=== PATIENT | female | born 1940 | race African-American/Black ===

== ENCOUNTER 2020-06-06 11:45 | Emergency (ER) | payer MEDICARE ==
[~2020-06-06 11:45] MED LIST: FLONASE ALLER15.8 ML; GLUCOSAMINE &1 EAC1 PO; KLOR-CON M 1010 MEQ PO; LEXAPRO20 MG PO; MUCUS RELIEF400 MG PO; NEURONTIN300 MG PO; NORCO 5-325 TA1 EACH PO; PHOSLO667 MG PO; PREVACID30 M1 PO; PREVALITE4 GM PO; SYMBICORT 80-10.2 GM INH; VITAMIN B-121000 MC1 PO; VITAMIN D3 PO
[2020-06-06 12:10] LABS: BASOPHIL 0.4 % (0-2); HCT 41.5 % (37.0-47.0); HGB 13.3 g/dl (12.5-16.0); LYMPHOCYTE 21.1 % (15-48); MCH 30.2 pg (25.0-31.0); MCV 94.3 fL (78.0-100.0); MONOCYTE 8.2 % (0-12); MPV 9.6 fL (6.0-9.5); NEUTROPHIL 68.6 % (41-80); NRBC 0; PLT 339 K/uL (150-400)
[2020-06-06 12:22] LABS: INR 1.03 (0.9-1.2); PROTHROMBIN TIME 12.8 SECONDS (11.4-13.6)
[2020-06-06 12:23] LABS: PTT 29.7 SECONDS (22.2-34.7)
[2020-06-06 12:26] LABS: ALBUMIN 3.5 g/dL (3.4-5.0); BILIRUBIN - TOTAL 0.3 mg/dL (0.2-1.0); BUN/CREAT RATIO (CALC) 14.3 RATIO; CREATININE 0.7 mg/dL (0.51-0.95); GLOBULIN (CALCULATION) 4.2 g/dL; TOTAL PROTEIN 7.7 g/dL (6.4-8.2)
== END 2020-06-06 15:55 | disposition home or self-care (01) ==
LOC: FER 11:45
PROVIDERS: Internal Medicine
DX: R07.9 Chest pain, unspecified (principal); R00.0 Tachycardia, unspecified; Z87.01 Personal history of pneumonia (recurrent); Z85.3 Personal history of malignant neoplasm of breast; Z90.10 Acquired absence of unspecified breast and nipple; Z88.5 Allergy status to narcotic agent
CPT/HCPCS: 36415; 71045; 80053; 83880; 84484; 85025; 85610; 85730; 93005